=== PATIENT | female | born 2000 | race Caucasian/White ===

== ENCOUNTER → 2020-07-02 14:39 | Outpatient (CLI) | payer BC, SELFPAY ==
--- NOTE | 2020-07-02 14:49 | XR_ITS ---
PROCEDURE: XR CHEST AP CLINICAL HISTORY: NON SPECIFIC REACTION TO TB SKIN TEST W/O ACTIVE TB COMPARISON: No exams were available for comparison FINDINGS: The cardiomediastinal silhouette and pulmonary vascularity are within normal limits. The lungs are clear without infiltrates, suspicious nodules, or pleural effusions. No acute bony abnormalities. IMPRESSION: No acute findings. Dictated b Sudhakar Claros MD 07/02/2020 15:44 Sudhakar Claros MD in [place] 07/02/2020 15:44
== END ==
PROVIDERS: PCP Family Medicine; Visit Provider Family Medicine
DX: R76.11 Nonspecific reaction to tuberculin skin test without active tuberculosis (principal)
CPT/HCPCS: 71045

== ENCOUNTER 2020-10-09 14:12 | Emergency (ER) | payer BC, SELFPAY ==
[2020-10-09 14:33] VITALS: BP 141/98; PULSE 94; RESP 18; TEMP 36.6; O2SAT 98; BMI 22.6
--- NOTE | 2020-10-09 14:56 | HMH.EDUTC ---
[facility] [place] Clinical Impression: Exposure to COVID-19 virus Disposition: Home, Self-Care Condition on Discharge: Good Instructions: Preventing the Spread of Coronavirus Discharge Instructions Additional Instructions: Drink plenty of fluids. Take tylenol for pain or fever. Follow up with your regular doctor. GO TO THE ER FOR ANY WORSENING SYMPTOMS Referrals: Gabino You MD [Primary Care Provider] - Time of Disposition: 15:00 Medical Decision Making - Medical Records Medical records reviewed: No: I reviewed the patient's medical records. - Cam Inquiry Pt receiving controlled substance: No Vital Signs: 10/09/20 14:33 10/09/20 15:14 Temperature 97.9 F 97.9 F Temperature Source Oral Oral Pulse Rate 94 H Pulse Rate [Radial] 94 H Respiratory Rate 18 18 Blood Pressure 141/98 H Blood Pressure [Right Arm] 141/98 H Blood Pressure Mean [Right Arm] 112 Blood Pressure Source Automatic Cuff Blood Pressure Source [Right Arm] Automatic Cuff Blood Pressure Position Sitting Blood Pressure Position [Right Arm] Sitting 02 Sat by Pulse Oximetry 98 Oxygen Delivery Method Room Air Room Air Orders (Tests/Meds): ORDERS Category Date Time Status Covid-19 Nasal PCR ([facility]) Routine Lab 10/09/20 14:27 Received [facility] [place] HPI - General Stated complaint: COVID EXPOSURE Time Seen by Provider: 10/09/20 14:57 Mode of Arrival: Ambulatory Source of Information: Patient Limitations: No Limitations Description of Symptoms (Recalled from Triage Doc. by RN): covid exposure HEENT Symptoms (Recalled from RN notes): No Resp Symptoms (Recalled from RN notes): No Skin Symptoms (Recalled from RN notes): No MS Symptoms (Recalled from RN notes): No Functional Status (Recalled from RN notes): wnl - History of Present Illness Provider Complaint: She states that she was exposed to covid by someone at her college. She denies any symptoms. - Related Data Previous Rx's Medication Instructions Recorded amoxicillin 500 mg tablet 500 mg PO BID #14 tab 02/14/20 prednisone 20 mg tablet 20 mg PO BID #10 tab 02/14/20 norgestimate 0.18 mg/0.215 mg/0.25 1 tab PO DAILY #84 tab 10/02/20 mg-ethinyl estradiol 25 mcg tablet Allergies Allergy/AdvReac Type Severity Reaction Status Date / Time No Known Allergies Allergy Verified 09/26/19 10:02 - Worker's Comp Is this a Worker's Comp case?: No [facility] History - Hepatitis A Screen Drug use history?: No High risk sexual behaviors?: No History of sexually transmitted infection?: No Currently employed?: No Childcare worker?: No Do you have indoor plumbing?: Yes Do you have electricity?: Yes Attestation statement:: This patient has been screened for Hepatitis A risk factors. I have reviewed the patient's past medical history: Yes Other Surgeries: Yes: No Previous Surgery - Social History Smoking Status: Never smoker Alcohol Intake: never Occupational Status: student Family Hx:: No significant family history ROS Obtained: Yes All systems reviewed & no additional complaints - Constitutional Constitutional: Reports system reviewed and no additional complaints, except as docu - Eyes Eyes: Reports system reviewed and no additional complaints, except as docu - ENT Ears, Nose, Mouth, and Throat: Reports system reviewed and no additional complaints, except as docu - Cardiovascular Cardiovascular: Reports system reviewed and no additional complaints, except as docu - Respiratory Respiratory: Yes system reviewed and no additional complaints, except as docu - Gastrointestinal Gastrointestingal: Reports: system reviewed and no additional complaints, except as docu Physical Exam - General General appearance: alert, in no apparent distress - Head Head exam: atraumatic, normocephalic, normal inspection - Eye Eye exam: Present: normal appearance, PERRL, EOMI - ENT ENT exam: Present: normal exam, normal oropharynx, mucous membranes mois
[2020-10-09 15:14] VITALS: BP 141/98; PULSE 94; RESP 18; TEMP 36.6; O2SAT 98
--- NOTE | 2020-10-09 19:46 | PC.NURSE ---
Patient notified of positive results.
== END 2020-10-09 15:15 | disposition home or self-care (01) ==
PROVIDERS: Emergency Provider Nurse Practitioner Family; PCP Family Medicine
DX: U07.1 COVID-19 (principal)
CPT/HCPCS: 99201; U0003

== ENCOUNTER → 2021-12-23 17:30 | Outpatient (CLI) | payer BC, SELFPAY | PROVIDERS: Visit Provider Physician Assistant | DX: R82.90 Unspecified abnormal findings in urine (principal); B95.8 Unspecified staphylococcus as the cause of diseases classified elsewhere | CPT/HCPCS: 87086; 87088; 87186 ==

== ENCOUNTER → 2022-05-11 14:24 | Outpatient (CLI) | payer BC, SELFPAY ==
[2022-05-14 10:32] LABS: QuantiFERON-TB Gold Plus Negative (Negative)
== END ==
PROVIDERS: PCP Physician Assistant; Visit Provider Physician Assistant
DX: Z11.1 Encounter for screening for respiratory tuberculosis (principal)
CPT/HCPCS: 36415; 86480

== ENCOUNTER → 2022-09-14 14:51 | Outpatient (CLI) | payer BC, SELFPAY ==
[2022-09-14 18:41] LABS: Free Thyroxine Index 3.5 ug/dL (5.93-13.13); Triiodothryronine (T3) Uptake 27 % (23.5-40.5)
[2022-09-14 18:42] LABS: Free T4 (Free Thyroxine) 1.07 ng/dl (0.78-2.19)
[2022-09-14 18:55] LABS: Thyroid Stimulating Hormone 0.82 uIU/mL (0.465-4.68)
[2022-09-14 18:56] LABS: Thyroid Stimulating Hormone 0.83 uIU/mL (0.465-4.68)
[2022-09-16 08:16] LABS: Thyroid Peroxidase Antibodies <8 IU/mL (0-34); Triiodothyronine (T3) Free 3.6 pg/mL (2.0-4.4)
[2022-09-18 03:36] LABS: Thyroid Stimulating Immunoglob <0.10 IU/L (0.00-0.55)
== END ==
PROVIDERS: PCP Physician Assistant; Visit Provider Physician Assistant
DX: E04.1 Nontoxic single thyroid nodule (principal)
CPT/HCPCS: 84436; 84439; 84443; 84445; 84479; 84481; 86376

== ENCOUNTER → 2022-09-30 15:06 | Outpatient (CLI) | payer BC, SELFPAY ==
--- NOTE | 2022-09-30 15:06 | US_ITS ---
FINAL REPORT CLINICAL HISTORY: thyroid nodules FINDINGS: Sonographic images of the thyroid were obtained. The right lobe of the thyroid measures 5.1 x 1.2 x 1.8 cm. The left lobe of the thyroid measures 5.4 x 1.4 x 2.1 cm. The isthmus measures 0.18 cm. There is a mostly solid hypoechoic nodule in the right lobe of the thyroid measuring 12 x 7 x 7 mm consistent with TI-RADS category 4. There is a 2nd nodule in the right lobe of the thyroid which is cystic measuring 4 x 3 x 2 mm consistent with TI-RADS category 1. There is a 3rd nodule in the right lobe of the thyroid which is cystic with small calcifications measuring 4 x 4 x 3 mm consistent with TI-RADS category 2. There is a dominant left thyroid lobe nodule which is cystic, solid and hypoechoic measuring 28 x 11 x 18 mm consistent with TI-RADS category 3. IMPRESSION: Bilateral thyroid nodules as detailed above. Recommend ultrasound-guided biopsy on the dominant left thyroid lobe nodule. Reviewed, Interpreted and Dictated by Lukasz Menon III, MD Transcribed by Misty Aleman Authenticated and [facility]
== END ==
PROVIDERS: PCP Physician Assistant; Visit Provider Physician Assistant
DX: E04.1 Nontoxic single thyroid nodule (principal)
CPT/HCPCS: 76536

== ENCOUNTER → 2022-10-07 08:41 | Outpatient (CLI) | payer BC, SELFPAY ==
--- NOTE | 2022-10-07 08:43 | US_ITS ---
FINAL REPORT CLINICAL HISTORY: Left Thyroid Nodule-- fna-- antonio tsai FINDINGS: Ultrasound guided thyroid biopsy. HISTORY: Left thyroid mass. Attending radiologist: Dr. Byrne. Physician respiratory therapy assistant: Antonio Tsai PA-C PROCEDURE: After informed consent was obtained and a time-out was performed, the patient was prepped and draped in usual sterile fashion over the left neck. Utilizing local anesthesia and sterile technique with a 25-gauge needle, access to lesion was obtained. Three passes were made. The patient received no conscious sedation. The patient tolerated procedure well and left the department in good condition. IMPRESSION: Status post ultrasound guided biopsy of thyroid without immediate complication. Films reviewed , interpreted and dictated by Dr. Byrne. Transcribed by Antonio Tsai PA-C. Reviewed, Interpreted and Dictated by Jr Byrne MD Transcribed by CONRAD Faria Authenticated and [facility]
== END ==
PROVIDERS: PCP Physician Assistant; Visit Provider Physician Assistant
DX: E04.1 Nontoxic single thyroid nodule (principal)
CPT/HCPCS: 60100; 76942; 76536; 88173; 88305

== ENCOUNTER 2023-02-15 09:42 | Emergency (ER) | payer BC, SELFPAY ==
[2023-02-15 09:50] VITALS: BP 142/84; PULSE 77; RESP 14; TEMP 37.4; O2SAT 100; BMI 24.0
--- NOTE | 2023-02-15 10:03 | EXP.UTC ---
Discharge Plan Disposition Patient Disposition: Home, Self-Care Condition: Good Prescriptions Prescriptions: New azithromycin [Zithromax Z-Manfred] 250 mg tablet See Rx Instructions .ROUTE .COMPLEX 5 Days Qty: 6 0RF Rx Instructions: For 250 mg dose pack: take 500 mg today (day 1), then 250 mg for 4 days (days 2-5) No Action norgestimate-ethinyl estradiol 0.18/0.215/0.25 mg-35 mcg (28) tablet 1 tab PO DAILY Qty: 84 4RF Referrals Follow up/Referrals: Anna Hitchcock PA [Primary Care Provider] - See instructions Activity Restrictions/Add. Instructions Additional Instructions/Restrictions: *Monitor Temp, Over the counter Motrin or Tylenol as directed/as needed Tylenol every 4 hours and Motrin every 6 hours (as long as your family doctor has told you that you can take it) for fever or pain. and straight to ER if unable to lower temp less than 101.0 after medication given *Warm salt water gargles may help to soothe the throat *Throat Lozenges? *Warm fluids like tea with honey may help to soothe the throat? *Sleep elevated *Humidifier/Vaporizer Your throat swab was sent for culture. Those results are typically sent to your primary care. Be sure to follow up in 2-3 days with your family doctor/primary care physician if no improvement so they can review those result and treat if necessary. If you don?t have a primary care doctor, I recommend you get one but in the mean time, you will have to return to a walk in clinic Follow up IMMEDIATELY for new or worsening symptoms or no Noticeable improvement over the next 48-72 hours. 911 for difficulty breathing or swallowing Clinical Impressions Clinical Impression: Pharyngitis Qualifiers: Pharyngitis/tonsillitis etiology: unspecified etiology Qualified Code(s): J02.9 - Acute pharyngitis, unspecified Instructions Patient Instructions: Sore Throat Discharge ED Provider: Marce Elizalde [facility] General Stated complaint: Sore throat Mode of Arrival: Ambulatory Source of Information: Patient Limitations: No Limitations Time Seen by Provider: 02/15/23 10:03 Description of Symptoms (Recalled from Triage Doc. by RN): PATIENT C/O SORE THROAT SINCE YESTERDAY HEENT Symptoms (Recalled from RN notes): Yes Resp Symptoms (Recalled from RN notes): No Skin Symptoms (Recalled from RN notes): No MS Symptoms (Recalled from RN notes): No Functional Status (Recalled from RN notes): WNL History of Present Illness Provider Complaint: Patient states that she has been having sore throat for the last couple of days that has continued to get worse States that today her throat was hurting worse so she came in to get it checked Related Data Previous Rx's Medication Instructions Recorded norgestimate-ethinyl estradiol 1 tab PO DAILY #84 tabs 04/11/22 0.18 mg/0.215mg/0.25mg-35 mcg(28)tablet azithromycin 250 mg tablet See Rx Instructions PO .COMPLEX 5 02/15/23 (Zithromax Z-Manfred) days #6 tabs Allergies Allergy/AdvReac Type Severity Reaction Status Date / Time No Known Allergies Allergy Verified 09/14/22 14:28 Worker's Comp Is this a Worker's Comp case?: No PFSH [facility] Disclaimer: The information contained in this section may have been updated after the patient was seen, as this information can be updated by other users. Social History Smoking Status: Never smoker alcohol intake: never current occupational status: student Travel in the last 8 weeks: None ROS Obtained: Yes All systems reviewed & no additional complaints except as documented and Yes Systems reviewed as appropriate & no additional complaints except as documented Constitutional Constitutional: Reports system reviewed and no additional complaints, except as documented and Reports as per HPI ENT Ears, Nose, Mouth, and Throat: Reports system reviewed and no additional complaints, except as documented, Reports as per HPI and Rep
[2023-02-15 10:11] LABS: UTC Strep Screen (Rapid) Negative (Negative)
[2023-02-15 10:22] VITALS: BP 142/84; PULSE 77; RESP 14; TEMP 37.4; O2SAT 100
== END 2023-02-15 10:25 | disposition home or self-care (01) ==
PROVIDERS: Emergency Provider Nurse Practitioner; PCP Physician Assistant
DX: J02.9 Acute pharyngitis, unspecified (principal)
CPT/HCPCS: 87880; 99212; 99214; G0463

== ENCOUNTER → 2023-05-01 19:30 | Outpatient (CLI) | payer BC, SELFPAY | PROVIDERS: PCP Student in an Organized Health Care Education/Training Program; Visit Provider Student in an Organized Health Care Education/Training Program | DX: J02.9 Acute pharyngitis, unspecified (principal) ==

== ENCOUNTER → 2023-08-02 11:03 | Outpatient (CLI) | payer BC, SELFPAY ==
[2023-08-02 11:12] LABS: Microscopic, Urine URINE MICROSCOPIC (MICROSCOPIC)
[2023-08-02 11:57] LABS: Appearance,Urine CLEAR (Clear); Bilirubin,Urine Negative (Negative); Blood, Urine 2+ (Negative); Color,Urine YELLOW (Yellow); Glucose,Urine (UA) Negative (Negative); Ketones,Urine Negative (Negative); Leukocyte Esterase,Urine TRACE (Negative); Nitrate,Urine Negative (Negative); Protein,Urine Negative (Negative); Specific Gravity, Urine <= 1.005 (1.005-1.030); Urobilinogen,Urine 0.2 EU/dl (0.2)
[2023-08-02 12:11] LABS: Squamous Epithelial Cell,Urine Occasional #/hpf (0-5); WBC,Urine Occasional #/hpf (0-3)
== END ==
PROVIDERS: PCP Physician Assistant; Visit Provider Physician Assistant
DX: R30.0 Dysuria (principal)
CPT/HCPCS: 81001; 87086; 87088; 87186

== ENCOUNTER → 2023-09-29 11:33 | Outpatient (CLI) | payer BC, SELFPAY ==
[2023-09-29 11:36] LABS: Microscopic, Urine URINE MICROSCOPIC (MICROSCOPIC)
[2023-09-29 12:25] LABS: Appearance,Urine SL CLOUDY (Clear); Bilirubin,Urine Negative (Negative); Blood, Urine 3+ (Negative); Color,Urine YELLOW (Yellow); Glucose,Urine (UA) Negative (Negative); Ketones,Urine Negative (Negative); Leukocyte Esterase,Urine 1+ (Negative); Nitrate,Urine Negative (Negative); Protein,Urine TRACE (Negative); Specific Gravity, Urine 1.025 (1.005-1.030); Urobilinogen,Urine 0.2 EU/dl (0.2)
[2023-09-29 12:44] LABS: Bacteria,Urine 2+ /lpf
== END ==
PROVIDERS: PCP Physician Assistant; Visit Provider Physician Assistant
DX: R39.9 Unspecified symptoms and signs involving the genitourinary system (principal); N39.0 Urinary tract infection, site not specified; B96.29 Other Escherichia coli [E. coli] as the cause of diseases classified elsewhere; B96.1 Klebsiella pneumoniae [K. pneumoniae] as the cause of diseases classified elsewhere; B96.4 Proteus (mirabilis) (morganii) as the cause of diseases classified elsewhere
CPT/HCPCS: 81001; 87086

== ENCOUNTER 2024-02-21 08:08 | Emergency (ER) | payer BC, SELFPAY ==
[2024-02-21 08:20] VITALS: BP 115/58; PULSE 106; RESP 18; TEMP 37.1; O2SAT 99; BMI 24.2
--- NOTE | 2024-02-21 08:26 | ED_ITS ---
Discharge Plan Disposition Patient Disposition: Home, Self-Care Condition: Good Prescriptions Prescriptions: New azithromycin [Zithromax Z-Manfred] 250 mg tablet See Rx Instructions .ROUTE .COMPLEX 5 Days Qty: 6 0RF Rx Instructions: For 250 mg dose pack: take 500 mg today (day 1), then 250 mg for 4 days (days 2-5) methylprednisolone [Medrol (Manfred)] 4 mg tablets,dose pack See Rx Instructions .Route .COMPLEX 6 Days Qty: 21 0RF Rx Instructions: taper pack; No Action norgestimate-ethinyl estradiol [Tri-Sprintec (28)] 0.18/0.215/0.25 mg-35 mcg (28) tablet 1 tab PO DAILY Qty: 84 3RF Referrals Follow up/Referrals: Anna Hitchcock PA [Primary Care Provider] - See instructions Activity Restrictions/Add. Instructions Additional Instructions/Restrictions: *Monitor Temp, Over the counter Motrin or Tylenol as directed/as needed Tylenol every 4 hours and Motrin every 6 hours (as long as your family doctor has told you that you can take it) for fever or pain. and straight to ER if unable to lower temp less than 101.0 after medication given *Warm salt water gargles may help to soothe the throat *Throat Lozenges? *Warm fluids like tea with honey may help to soothe the throat? *Sleep elevated *Humidifier/Vaporizer Start oral steriods tomorrow Start oral antibiotics today Your throat swab was sent for culture. Those results are typically sent to your primary care. Be sure to follow up in 2-3 days with your family doctor/primary care physician if no improvement so they can review those result and treat if necessary. If you don?t have a primary care doctor, I recommend you get one but in the mean time, you will have to return to a walk in clinic Follow up IMMEDIATELY for new or worsening symptoms or no Noticeable improvement over the next 48-72 hours. 911 for difficulty breathing or s wallowing Clinical Impressions Clinical Impression: Sinusitis Qualifiers: Sinusitis location: unspecified location Chronicity: unspecified Qualified Code(s): J32.9 - Chronic sinusitis, unspecified Instructions Patient Instructions: Sinusitis, DI for Sinusitis Discharge ED Provider: Marce Elizalde [facility] General Stated complaint: sore throat, cough, congestion, Mode of Arrival: Ambulatory Source of Information: Patient Limitations: No Limitations Time Seen by Provider: 02/21/24 08:26 Description of Symptoms (Recalled from Triage Doc. by RN): Pt's symtptoms are cough, sore throat, congestion, and sinus pressure. HEENT Symptoms (Recalled from RN notes): Yes Resp Symptoms (Recalled from RN notes): No Skin Symptoms (Recalled from RN notes): No MS Symptoms (Recalled from RN notes): No Functional Status (Recalled from RN notes): n/a History of Present Illness Provider Complaint: Patient states that she has been having sinus pain and pressure, sore throat, cough and congestion States that today it was still bothering her so she came in to get checked Related Data Previous Rx's Medication Instructions Recorded norgestimate-ethinyl estradiol 1 tab PO DAILY #84 tabs 07/24/23 0.18 mg/0.215mg/0.25mg-35 mcg(28)tablet (Tri-Sprintec (28)) azithromycin 250 mg tablet See Rx Instructions PO .COMPLEX 5 02/21/24 (Zithromax Z-Manfred) days #6 tabs methylprednisolone 4 mg tablets in See Rx Instructions .Route 02/21/24 a dose pack (Medrol (Manfred)) .COMPLEX 6 days #21 tabs Allergies Allergy/AdvReac Type Severity Reaction Status Date / Time No Known Allergies Allergy Verified 02/21/24 08:25 Worker's Comp Is this a Worker's Comp case?: No [facility] Disclaimer: The information contained in this section may have been updated after the patient was seen, as this information can be updated by other users. Social History Smoking Status: Never smoker alcohol intake: never current occupational status: student Travel in the last 8 weeks: None ROS Obtained: Yes All systems reviewed & no additional complaints except as documented and Yes Systems reviewed as appropriate & no additional complaints except as documented Constitutional Constitutional: Reports system reviewed and no additional complaints, except as documented and Reports as per HPI ENT Ears, Nose, Mouth, and Throat: Reports system reviewed and no additional complaints, except as documented, Reports as per HPI, Reports nasal congestion and Reports sore throat Cardiovascular Cardiovascular: Reports system reviewed and no additional complaints, except as documented and Reports as per HPI Respiratory Respiratory: Reports system reviewed and no additional complaints, except as documented, Reports as per HPI and Reports cough Gastrointestinal Gastrointestingal: Reports system reviewed and no additional complaints, except as documented and as per HPI Physical Exam General General appearance: alert and in no apparent distress ENT ENT exam: Present mucous membranes moist Expanded ENT Exam Nose exam: Present sinus tenderness Throat exam: Present tonsillar erythema Respiratory Respiratory exam: Present normal lung sounds bilaterally; Absent respiratory distress or wheezes Cardiovascular Cardiovascular exam: Present regular rate, normal rhythm and normal heart sounds Neurological Exam Neurological exam: Present alert, oriented X3 and normal gait Medical Decision Making Cam Inquiry Pt receiving controlled substance: No Cam was queried for this patient: No Vital Signs: 02/21/24 08:20 Temperature 98.7 F Temperature Source Oral Pulse Rate [Right Radial] 106 H Respiratory Rate 18 Blood Pressure [Right Arm] 115/58 L Blood Pressure Mean [Right Arm] 77 Blood Pressure Source [Right Arm] Automatic Cuff Blood Pressure Position [Right Arm] Sitting 02 Sat by Pulse Oximetry 99 Oxygen Delivery Method Room Air Lab Data Lab results reviewed: Yes I reviewed the patient's lab results. Medical Decision Narrative: Patient denies
[2024-02-21 08:34] LABS: UTC Strep Screen (Rapid) Negative (Negative)
[2024-02-21] MEDS: METHYLPREDNISOLONE SOD SUCC 125MG VIAL 125 MG IM (08:43)
[2024-02-21 08:52] VITALS: BP 115/58; PULSE 106; RESP 18; TEMP 37.1; O2SAT 99
== END 2024-02-21 08:52 | disposition home or self-care (01) ==
PROVIDERS: Emergency Provider Nurse Practitioner; PCP Physician Assistant
DX: J01.90 Acute sinusitis, unspecified (principal); R05.9 Cough, unspecified; R07.0 Pain in throat; R09.81 Nasal congestion
CPT/HCPCS: 87880; 96372; 99212; 99214; G0463

== ENCOUNTER 2024-06-04 11:08 | Emergency (ER) | payer BC, SELFPAY ==
[2024-06-04 11:22] VITALS: BP 129/91; PULSE 70; RESP 18; TEMP 36.6; O2SAT 100; BMI 25.2
--- NOTE | 2024-06-04 11:22 | ED_ITS ---
Discharge Plan Disposition Patient Disposition: Home, Self-Care Condition: Good Prescriptions Prescriptions: New azithromycin [Zithromax] 250 mg tablet 250 mg PO UD DOSE PK Qty: 6 0RF Rx Instructions: Take two (2) tablets today, then one (1) tablet days #2 thru #5 methylprednisolone 4 mg Tablets,Dose Pack 4 mg PO DIRECTED 6 Days Qty: 21 0RF Rx Instructions: Take 1 pack as directed for 6 days [id number] [Bromfed DM] 2-30-10 mg/5 mL Syrup 5 ml PO Q6H PRN (Reason: Cough) Qty: 240 0RF Discontinued cefdinir 300 mg capsule 300 mg PO Q12H 10 Days Qty: 20 0RF prednisone 20 mg tablet 20 mg PO BID Qty: 10 0RF Rx Instructions: administer with food or milk azithromycin [Zithromax Z-Manfred] 250 mg tablet See Rx Instructions .ROUTE .COMPLEX 5 Days Qty: 6 0RF Rx Instructions: For 250 mg dose pack: take 500 mg today (day 1), then 250 mg for 4 days (days 2-5) methylprednisolone [Medrol (Manfred)] 4 mg tablets,dose pack See Rx Instructions .Route .COMPLEX 6 Days Qty: 21 0RF Rx Instructions: taper pack; No Action norgestimate-ethinyl estradiol [Tri-Sprintec (28)] 0.18/0.215/0.25 mg-35 mcg (28) tablet 1 tab PO DAILY Qty: 84 3RF Referrals Follow up/Referrals: Anna Hitchcock PA [Primary Care Provider] - See instructions Activity Restrictions/Add. Instructions Additional Instructions/Restrictions: Drink plenty of fluids. Take tylenol or ibuprofen for pain or fever. Take the medications as directed. Follow up with your regular doctor. GO TO THE ER FOR ANY WORSENING SYMPTOMS Don't start the oral steroids (medrol dose pack) until tomorrow since you had the shot here Clinical Impressions Clinical Impression: Pharyngitis Qualifiers: Pharyngitis/tonsillitis etiology: unspecified etiology Qualified Code(s): J02.9 - Acute pharyngitis, unspecified Instructions Patient Instructions: Sore Throat, DI for Pharyngitis/Tonsillopharyngitis -- Adult, Ceftriaxone Injection, Dexamethasone Injection Discharge ED Provider: Rene Serrano [facility] [place] HPI General Stated complaint: onset of sore throat Time Seen by Provider: 06/04/24 11:22 History of Present Illness Provider Complaint: She states that for the past 2 days she has had worsening sore throat and sinus congestion. Related Data Previous Rx's Medication Instructions Recorded norgestimate-ethinyl estradiol 1 tab PO DAILY #84 tabs 07/24/23 0.18 mg/0.215mg/0.25mg-35 mcg(28)tablet (Tri-Sprintec (28)) azithromycin 250 mg tablet 250 mg PO UD DOSE PK #6 tabs 06/04/24 (Zithromax) [id number] 5 ml PO Q6H PRN Cough #240 mL 06/04/24 2 mg-30 mg-10 mg/5 mL oral syrup (Bromfed DM) methylprednisolone 4 mg tablets in 4 mg PO DIRECTED 6 days #21 tabs 06/04/24 a dose pack Allergies Allergy/AdvReac Type Severity Reaction Status Date / Time No Known Allergies Allergy Verified 06/04/24 11:25 [facility] Disclaimer: The information contained in this section may have been updated after the patient was seen, as this information can be updated by other users. Social History Smoking Status: Never smoker alcohol intake: never current occupational status: student Travel in the last 8 weeks: None ROS Obtained: Yes All systems reviewed & no additional complaints except as documented Constitutional Constitutional: Reports as per HPI, Reports chills and Denies fever(s) Eyes Eyes: Denies eye discharge ENT Ears, Nose, Mouth, and Throat: Reports as per HPI Cardiovascular Cardiovascular: Denies chest pain Respiratory Respiratory: Denies chest congestion and Reports cough Gastrointestinal Gastrointestingal: Reports nausea; Denies abdominal pain, constipation, cramping, diarrhea or vomiting Musculoskeletal Musculoskeletal: Denies arthralgias Integumentary/Breasts Skin/Breast: Denies rash Neurologic Neurologic: Denies paresthesias Physical Exam General General appearance: alert and in no apparent distress Head Head exam: atraumatic, normocephalic and normal inspection Eye Eye exam: Present normal appearance, PERRL and EOMI ENT ENT exam: Present mucous membranes moist and normal external ear exam Expanded ENT Exam TM/Canal exam: Bilateral TM: erythema and bulging Nose exam: Absent sinus tenderness Mouth exam: Present normal external inspection; Absent drooling Teeth exam: Present normal inspection Throat exam: Present tonsillar erythema, tonsillomegaly and tonsillar exudate Neck Neck exam: Present normal inspection, full ROM and trachea midline; Absent tenderness, meningismus or lymphadenopathy Chest Chest inspection: Present normal inspection and symmetric chest wall rise; Absent tenderness Respiratory Respiratory exam: Present normal lung sounds bilaterally; Absent respiratory distress, wheezes, stridor or accessory muscle use Cardiovascular Cardiovascular exam: Present regular rate and normal rhythm; Absent systolic murmur or diastolic murmur Abdominal Exam Abdominal exam: Present soft and normal bowel sounds; Absent distention, tenderness, guarding, rebound or rigidity Extremities Exam Extremities exam: Present normal inspection and normal capillary refill; Absent calf tenderness Back Exam Back exam: Present normal inspection and full ROM; Absent tenderness, CVA tenderness (R) or CVA tenderness (L) Neurological Exam Neurological exam: Present alert, oriented X3 and CN II-XII intact Psychiatric Psychiatric exam: Present normal affect and normal mood Skin Skin exam: Present warm, dry, intact and normal color Medical Decision Making Medical Records Medical records reviewed: No I reviewed the patient's medical records. Cam Inquiry Pt receiving controlled substance: No Lab Data Lab results reviewed: Yes I reviewed the patient's lab results.
[2024-06-04 11:28] LABS: UTC Strep Screen (Rapid) Negative (Negative)
[2024-06-04] MEDS: DEXAMETHASONE 4MG/ML 1ML VIAL 8 MG IM (11:39)
[2024-06-04] MEDS: cefTRIAXone 1GM VIAL 1 GM IM (11:39)
[2024-06-04 12:05] VITALS: BP 129/91; PULSE 70; RESP 18; TEMP 36.6; O2SAT 100
== END 2024-06-04 12:06 | disposition home or self-care (01) ==
PROVIDERS: Emergency Provider Nurse Practitioner Family; PCP Physician Assistant
DX: J02.9 Acute pharyngitis, unspecified (principal)
CPT/HCPCS: 87880; 96372; 99212; 99214; G0463; J0696; J1100

== ENCOUNTER 2025-06-26 08:44 | Outpatient (CLI) | payer BC, SELFPAY ==
--- OUTSIDE RECORDS SUMMARY | 2025-06-24 17:15 | XMS_ITS | Encounter Summary ---
Author Organization [facility] Address [address] [place], [place] [id number] Phone [email or web address] Care Team Providers Care Civil Engineering Project Designer Name Role Phone Anna Hitchcock Primary Care Provider Unavailabl e Reason for Visit * Reason Comments Establish Care / New Member Pt is here t o establish care Encounter Details Date Type Department Care Team (Late st Contact Info) Description 06/24/2025 5:15 PM EDT Office Visit [facility] [address] [place] [address] Ronald Duncan MD [address] [place] [address] Anxiety (Primary Dx) Social History Tobacco Use Types Packs/Day Years Used Date Smoking Tobacco: Never Smokeless Tobacco: Never Tobacco Cessation:Counseling Given: No Alcohol Use Standard Drinks/Week Comments Defer 0 (1 standard drink = 0.6 oz pur e alcohol) Alcohol Use Answer Date Recorded Alcohol Use Status Defer 06/24/2025 Depression Answer Date Recorded PHQ Total Score 0 06/24/2025 Comments Unknown Sex and Gender Information Value Date Recorded Sex Assigned at Female 06/18/2025 9:19 AM CDT Legal Sex Female 4:36 PM CDT Gender Identity Female 06/18/2025 9:19 AM CDT Sexual Orientation Not on file documented as of this encounter Last Filed Vital Signs Vital Sign Reading Time Taken Comments Blood Pressure 118/72 06/24/2025 5:14 PM EDT Pulse 87 06/24/2025 5:14 PM EDT Temperature 37.3 C (99.1 F) 06/24/2025 5:14 PM EDT Respiratory Rate - - Oxygen Saturation 99% 06/24/2025 5:14 PM EDT Inhaled Oxygen Concentration - - Weight 69.5 kg (153 lb 3.2 oz) 06/24/2025 5:14 P M EDT Height - - Body Mass Index - - documented in this encounter Progress Notes * Ronald Duncan MD - 06/24/2025 5:15 PM EDT Allergies Chart Review Health Maintenance History Immunizations Screenings Search Synopsis This Visit Vital Signs Assessment & Plan Anxiety Orders: CMP12+LP+6AC (171280) - [facility]; Future Hgb A1C Hemoglobin Glycosylated (62729); Future TSH Thyroid Stimulating Hormone (06775); Future T4, Free (01978); Future TPO Thyroid Peroxidase and Thyroglobulin Antibodies (79474,92708); Future CBC Complete blood count with diff (60298); Future Magnesium Serum (85983); Future JOSEPH Screen,IFA, with Reflex to Titer and Pattern (91800); Future Rheumatoid factor (69814); Future CRP C-reactive protein (75989); Future escitalopram (LEXAPRO) 10 MG tablet; Take 1 tablet (10 mg total) by mouth 1 (one) time each day. Brodie start lexapro 10mg once a day. Take in am with food and start with 1/2 tablet for first four days. Will touch base in about 6 weeks to see how she is doing. Discussed remaining on the medication for at least a year before considering taper (provided things are going well) -- has been shown to dr amatically reduce the risk of relapse. Keep up exercise and consider HIIT training which may help with anxiety. Discussed clean diet which has shown to benefit anxiety. All questions answered. She was instructed to contact us with any issues prior to f/u. Follow-up: No follow up orders placed. Subjective Neil Perez is a 25 y.o. Reason(s) for visit on 06/24/2025: Establish Care / New Member Comments (if any): Pt is here to establish care HPI: Neil Perez is a 25 y.o. female who presents for labs and discussion of anxiety. She works at [employer] as an [employer]. Went to school in [place] for her degree. Has been working 2 years now and enjoys it. She is finding herself very anxious at all times -- unable to leave things at work, worrying unreasonably about people in the house, leaving appliances on, etc. She has never had thisissue before and has never been treated for any psychiatric issues. Her sister has anxiety and is on medication. She is active -- spends a lot of time in the gym. No recent financial, medical, relationship issues. No illnesses. No trauma or accidents. NKDA. No surgeries. Symptoms have been going onfor last 4 or more months and have become intrusive and affecting all aspects of her life. She has cut down significantly on caffeine. Her sleep and appetite have been fine. She did have some thyroidconcerns a few years back with an apparent temporary goiter, but testing, etc was all OK and thingsresolved. General Pertinent negatives include no abdominal pain, arthralgias, chest pain, chills, congestion, coughing, fatigue, fever, headaches, myalgias, nausea or weakness. Review of Systems Constitutional: Negative for chills, fatigue, fever and unexpected weight change. HENT: Negative for congestion, rhinorrhea and trouble swallowing. Respiratory: Negative for cough, shortness of breath and wheezing. Cardiovascular: Negative for chest pain, palpitations and leg swelling. Gastrointestinal: Negative for abdominal pain, blood in stool, heartburn and nausea. Musculoskeletal: Negative for arthralgias and myalgias. Skin: Negative for bleeding and bruising. Neurological: Negative for dizziness, tremors, weakness and headaches. Endo: Negative for polydipsia, polyphagia and polyuria. Psychiatric/Behavioral: Positive for agitation. Negative for behavioral problems, confusion, decreased concentration, dysphoric mood, hallucinations, self-injury, sleep disturbance and suicidal ideas. The patient is nervous/anxious. The patient does not have insomnia and is not hyperactive. Hematologic: Negative for adenopathy and bruises/bleeds easily. Genitourinary: Negative for difficulty urinating and frequency. The following portions of the patient's chart were reviewed by me during this encounter and updatedas appropriate: Objective Visit Vitals BP 118/72 Pulse 87 Temp 99.1 ??F Wt 153 lb 3.2 oz SpO2 99% Physical Exam Vitals and nursing note reviewed. Constitutional: Appearance: Normal appearance. HENT: Head: Normocephalic and atraumatic. Eyes: General: No scleral icterus. Extraocular Movements: Extraocular movements intact. Conjunctiva/sclera: Conjunctivae normal. Pupils: Pupils are equal, round, and reactive to light. Cardiovascular: Rate and Rhythm: Normal rate and regular rhythm. Heart sounds: Normal heart sounds. Pulmonary: Effort: Pulmonary effort is normal. Breath sounds: Normal breath sounds. Abdominal: General: Abdomen is flat. Musculoskeletal: General: Normal range of motion. Cervical back: Normal range of motion and neck supple. Skin: General: Skin is warm. Neurological: General: No focal deficit present. Mental Status: She is alert and oriented to person, place, and time. Mental status is at baseline. Psychiatric: Mood and Affect: Mood normal. Behavior: Behavior normal. Thought Content: Thought content normal. Judgment: Judgment normal. Ronald Duncan MD 06/24/2025 Answers submitted by the patient for this visit: Other (Submitted on 06/23/2025) Chief Complaint: REASON FOR VISIT - OTHER Please describe your symptoms.: blood work / anxiety Have you had these symptoms before?: No Questionnaire about: REASON FOR VISIT - OTHER (Submitted on 06/23/2025) Chief Complaint: REASON FOR VISIT - OTHER documented in this encounter Plan of Treatment Upcoming Encounters Date Type Department Care Team (Late st Contact Info) Description 07/03/2025 5:30 PM EDT Lab [facility] [address] [place] [address] Scheduled Orders Name Type Priority Associated Diagnoses Orde r Schedule CMP12+LP+6AC (860754) - [facility] Lab Routine Anxiety Expected: 07/25/2025, Expires: 12/25/2025 Hgb A1C Hemoglobin Glycosylated (66813) Lab Routine Anxiety Expected: 07/25/2025, Expires: 12/25/2025 TSH Thyroid Stimulating Hormone (57633) Lab Routine Anxiety Expected: 07/25/2025, Expires: 12/25/2025 T4, Free (37882) Lab Routine Anxiety Expected: 07/25/2025, Expires: 12/25/2025 TPO Thyroid Peroxidase and Thyroglobulin Antibodies (59139,76061) Lab Routine Anxiety Expected: 07/25/2025, Expires: 12/25/2025 CBC Complete blood count with diff (63722) Lab Routine Anxiety Expected: 07/25/2025, Expires: 12/25/2025 Magnesium Serum (24455) Lab Routine Anxiety Expected: 07/25/2025, Expires: 12/25/2025 JOSEPH Screen,IFA, with Reflex to Titer and Pattern (44729) Lab Routine Anxiety Expected: 07/25/2025, Expires: 12/25/2025 Rheumatoid factor (96772) Lab Routine Anxiety Expected: 07/25/2025, Expires: 12/25/2025 CRP C-reactive protein (90893) Lab Routine Anxiety Expected: 07/25/2025, Expires: 12/25/2025 documented as of this encounter Visit Diagnoses Diagnosis Anxiety- Primary Anxiety state, unspecified documented in this encounter Care Teams Civil Engineering Project Designer Relationship Specialty Start Date End Date Anna Hitchcock [address] [place] [address] PCP - General Family Medicine 06/24/25 documented as of this encounter
[2025-06-26 14:47] LABS: Influenza A, PCR Not Detected (NotDetected); Influenza B, PCR Not Detected (NotDetected)
[2025-06-26 16:23] LABS: Coronavirus 19, PCR Detected (NotDetected)
--- OUTSIDE RECORDS SUMMARY | 2025-06-27 13:44 | XMS_ITS | Clinical Summary ---
Author Organization [facility] Address [address] [place] [address] Phone [email or web address] Care Team Providers Care Well Service Derrick Worker Name Role Phone Anna Hitchcock Primary Care Provider Unavailabl e Allergies No known active allergies Medications escitalopram (LEXAPRO) 10 MG tabletIndicatio ns:Anxiety Take 1 tablet (10 mg total) by mouth 1 (one) time each day. 90 tablet 5 09/22/20 25 Active Tri-Sprintec 0.18/0.215/0.25 MG-35 MCG per tablet Take 1 tablet by mouth 1 (one) time each day. 5 06/24/20 25 Discontinued Active Problems No known active problems Encounters Date Type Department Care Team Description 06/24/2025 5:15 PM EDT Office Visit [facility] [address] [facility] [address] [address] [place] [address] Ronald Duncan MD Anxiety (Primary Dx) from Last 3 Months Social History Tobacco Use Types Packs/Day Years [...] AM CDT Sexual Orientation Not on file Last Filed Vital Signs Vital Sign Reading [...] - - Body Mass Index - - Plan of Treatment Upcoming Encounters Date Type Department Care Team (Late st Contact Info) Description 07/03/2025 5:30 PM EDT Lab [facility] [address] [place] [address] Health Maintenance Due Date Last Done Comments Dental Cleaning/Exam 2000 HIV Screening 2000 Hepatitis C Screening 2000 Hepatitis B Immunization (3 of 3 - 3-dose series) 05/29/2001 04/03/2001, 2000 HPV Immunization (1 - 3-dose series) 2015 Cervical Cancer Screening 2016 Annual Preventive Exam 2018 Hep B Infection Screening - Triple Screen 2018 Tetanus Diphtheria and Pertussis Immunization (4 - Tdap) 2019 04/03/2001, 01/17/2001, 2000, Additional history exists Covid-19 Immunization ( season) 2024 05/17/2022, 08/03/2021, 07/06/2021 Influenza Immunization (#1) 07/28/202508/28, 09/18/2023, 12/12/2022, Additional history exists HIB Immunization Completed 04/03/2001, , 2000 Polio Immunization Completed 04/03/2001, 0 01/17/2001, 2000, Additional history exists Varicella Immunization Aged Out 04/03/2001 No lo nger eligible based on patient's age to complete this topic Pneumococcal: Ped (0 to 5 Yrs) and At-Risk Member (6 to 64 Yrs) Aged Out 09/25/2001, 06/12/2001 No longer eligibl e based on patient's age to complete this topic Hepatitis A Immunization Aged Out No longer eligible based on patient's age to complete this topic Men B Immunization Aged Out No longer eligible based on patient's age to complete this topic Meningococcal Immunization Aged Out N o longer eligible based on patient's age to complete this topic Insurance ZAIN NO COPAY NB Care Teams Well Service Derrick Worker Relationship Specialty Start Date End Date Anna Hitchcock [address] [place] [address] PCP - General Family Medicine 06/24/25
== END 2025-06-26 23:59 | disposition home or self-care (01) ==
LOC: LAB.DROPOF 06-27 13:42
PROVIDERS: PCP Student in an Organized Health Care Education/Training Program; Visit Provider Student in an Organized Health Care Education/Training Program
DX: R05.1 Acute cough (principal)
CPT/HCPCS: 87631

== ENCOUNTER 2025-07-25 15:03 | Outpatient (CLI) | payer BC, SELFPAY ==
--- OUTSIDE RECORDS SUMMARY | 2025-06-24 17:15 | XMS_ITS | Encounter Summary ---
Author Organization [facility] Address [address] [place], [place] [id number] Phone [email or web address] Care Team Providers Care Rn Practitioner Name Role Phone Anna Hitchcock Primary Care Provider Unavailabl e Reason for Visit * Reason Comments Establish Care / New Member Pt is here t o establish care Encounter Details Date Type Department Care Team (Late st Contact Info) Description 06/24/2025 5:15 PM EDT Office Visit [facility] [address] [place] [address] Ronald Duncan MD [address] [place] [address] Anxiety (Primary Dx) Social History [...] Signs Assessment & Plan Anxiety Orders: CMP12+LP+6AC (114276) - [facility]; Future Hgb A1C Hemoglobin Glycosylated (40378); Future TSH Thyroid Stimulating Hormone (08621); Future T4, Free (21760); Future TPO Thyroid Peroxidase and Thyroglobulin Antibodies (87410,46458); Future CBC Complete blood count with diff (53280); Future Magnesium Serum (43596); Future JOSEPH Screen,IFA, with Reflex to Titer and Pattern (34623); Future Rheumatoid factor (75930); Future CRP C-reactive protein (55131); Future escitalopram (LEXAPRO) 10 MG tablet; Take [...] and discussion of anxiety. She works at [employer] as an [employer]. Went to school in [place] for her degree. Has been working 2 [...] documented in this encounter Plan of Treatment Not on file documented as of this encounter Results * CRP C-reactive protein (50890) (07/03/2025 5:17 PM EDT) CRP 2 0 - 10 mg/L 01 Blood (Blood, Venous) 07/03/2025 5:17 PM EDT 07/04/2025 1:00 AM EDT Comment:Blood, Venou Narrative [facility] - 07/05/2025 10:09 AM EDT Performed at: - [address] [id number] Pipe Organ Installer: Jc Shaver PhD, Phone: [phone] us Ronald Duncan MD LAB BLOOD ORDERABLES Final Resul t [facility] - [address] [place] [address] * Rheumatoid factor (07354) (07/03/2025 5:17 PM EDT) Rheumatoid Factor <10.0 <14.0 IU/mL 01 Blood (Blood, Venous) 07/03/2025 5:17 PM EDT 07/04/2025 1:00 AM EDT Comment:Blood, Venou Narrative [facility] - 07/05/2025 10:09 AM EDT Performed at: [address] [id number] Pipe Organ Installer: Jc Shaver PhD, Phone: [phone] us Ronald Duncan MD LAB BLOOD ORDERABLES Final Resul t Performing Organization Address [facility] de Phone Number [email or web address] [facility] [address] [place] [address] * JOSEPH Screen,IFA, with Reflex to Titer and Pattern?? (34643) (07/03/2025 5:17 PM EDT) Pathologist [facility] antinuclear Antibodies, IFA Negative 01 Comment: Negative <1:80 Borderline 1:80 Positive >1:80 ICAP nomenclature: AC-0 For more information about Hep-2 cell patterns use ANApatterns.org, the official website for the International Consensus on Antinuclear Antibody (JOSEPH) Patterns (ICAP). Blood (Blood, Venous) 07/03/2025 5:17 PM EDT 07/04/2025 1:00 AM EDT Comment:Blood, Venou Narrative [facility] - 07/08/2025 10:09 AM EDT Performed at: [facility] [address] [place] [id number] Pipe Organ Installer: Jc Shaver PhD, Phone: [phone] us Ronald Duncan MD LAB BLOOD ORDERABLES Final Resul t Performing Organization Address [facility] de Phone Number [facility] [address] [place] [address] * Magnesium Serum (71384) (07/03/2025 5:17 PM EDT) Pathologist [facility] Magnesium 2.1 1.6 - 2.3 mg/dL 01 Blood (Blood, Venous) 07/03/2025 5:17 PM EDT 07/04/2025 1:00 AM EDT Comment:Blood, Venou Narrative [facility] - 07/05/2025 9:09 AM EDT Performed at: - [facility] [address] [id number] Pipe Organ Installer: Jc Shaver PhD, Phone: [phone] us Ronald Duncan MD LAB BLOOD ORDERABLES Final Resul t [facility] - [address] [place] [address] * CBC Complete blood count with diff (40192) (07/03/2025 5:17 PM EDT) [facility] Auto WBC 5.8 3.4 - 10.8 x10E3/uL 01 RBC 4.64 3.77 - 5.28 x10E6/uL 01 Hemoglobin 13.3 11.1 - 15.9 g/dL 01 Hematocrit 41.5 34.0 - 46.6 % 01 MCV 89 79 - 97 fL 01 MCH 28.7 26.6 - 33.0 pg 01 MCHC 32.0 31.5 - 35.7 g/dL 01 RDW 11.7 11.7 - 15.4 % 01 Platelets 204 150 - 450 x10E3/uL 01 Neutrophils Relative 51 Not Estab. % 01 Lymphocytes Relative 40 Not Estab. % 01 Monocytes Relative 5 Not Estab. % 01 Eosinophils Relative 3 Not Estab. % 01 Basophils Relative 1 Not Estab. % 01 Neutrophils Absolute 3.0 1.4 - 7.0 x10E3/uL 01 Lymphocytes Absolute 2.4 0.7 - 3.1 x10E3/uL 01 Monocytes Absolute 0.3 0.1 - 0.9 x10E3/uL 01 Eosinophils Absolute 0.2 0.0 - 0.4 x10E3/uL 01 Basophils Absolute 0.0 0.0 - 0.2 x10E3/uL 01 Immature Granulocytes 0 Not Estab. % 01 Immature Grans Absolute 0.0 0.0 - 0.1 x10E3/uL 01 Blood (Blood, Venous) 07/03/2025 5:17 PM EDT 07/04/2025 1:00 AM EDT Comment:BloodMaddy Narrative [facility] - 07/05/2025 4:07 AM EDT Performed at: [address] [place] [id number] Pipe Organ Installer: Jc Shaver PhD, Phone: [phone] Ronald Ducnan MD LAB BLOOD ORDERABLES Final Resul t Performing Organization Address [facility] de Phone Number [facility] [address] [place] [address] * TPO Thyroid Peroxidase and Thyroglobulin Antibodies?? (64706,48846) (07/03/2025 5:17 PM EDT) Thyroid Peroxidase Ab 18 0 - 34 IU/mL 01 Antithyroglobulin Ab <1.0 0.0 - 0.9 IU/mL 01 Comment: Thyroglobulin Antibody measured by [employer] Methodology It should be noted that the presence of thyroglobulin antibodies may not be pathogenic nor diagnostic, especially at very low levels. The assay regional economic liaison has found that four percent of individuals without evidence of thyroid disease or autoimmunity will have positive TgAb levels up to 4 IU/mL. Blood (Blood, Venous) 07/03/2025 5:17 PM EDT 07/04/2025 1:00 AM EDT Comment:BloodMaddy Narrative [facility] - 07/07/2025 5:09 PM EDT Performed at: [address] [place] [id number] Pipe Organ Installer: Jc Shaver PhD, Phone: [phone] us Ronald Duncan MD LAB BLOOD ORDERABLES Final Resul t Performing Organization Address [facility] de Phone Number [facility] - [address] [place] [address] * T4, Free (50804) (07/03/2025 5:17 PM EDT) Free T4 1.44 0.82 - 1.77 ng/dL 01 Blood (Blood, Venous) 07/03/2025 5:17 PM EDT 07/04/2025 1:00 AM EDT Comment:Maddy Molina Narrative [facility] - 07/05/2025 7:07 AM EDT Performed at: [address] [place] [id number] Pipe Organ Installer: Jc Shaver PhD, Phone: [phone] Ronald Duncan MD LAB BLOOD ORDERABLES Final Resul t Performing Organization Address [facility] de Phone Number [facility] - [address] [place] [address] * (ABNORMAL) TSH Thyroid Stimulating Hormone?? (25548) (07/03/2025 5:17 PM EDT) [facility] TSH, High Sensitivity 0.386(L) 0.450 - 4.500 uIU/mL 01 Blood (Blood, Venous) 07/03/2025 5:17 PM EDT 07/04/2025 1:00 AM EDT Comment:BloodMaddy Narrative [facility] - 07/05/2025 6:07 AM EDT Performed at: [address] [place] [id number] Pipe Organ Installer: Jc Shaver PhD, Phone: [phone] us Ronald Duncan MD LAB BLOOD ORDERABLES Final Resul t Performing Organization Address [facility] de Phone Number [facility] - [address] [place] [address] * Hgb A1C Hemoglobin Glycosylated (85311) (07/03/2025 5:17 PM EDT) [facility] Hemoglobin A1C 4.9 4.8 - 5.6 % 01 Comment: Prediabetes: 5.7 - 6.4 Diabetes: >6.4 Glycemic control for adults with diabetes: <7.0 Blood (Blood, Venous) 07/03/2025 5:17 PM EDT 07/04/2025 1:00 AM EDT Comment:Blood, Venou Narrative [facility] - 07/05/2025 4:07 AM EDT Performed at: 01 - [facility] [address] [id number] Pipe Organ Installer: Jc Shaver PhD, Phone: [phone] Ronald Duncan MD LAB BLOOD ORDERABLES Final Resul t [facility] - [address] [place] [address] * (ABNORMAL) CMP12+LP+6AC (833559) - [facility] (07/03/2025 5:17 PM EDT) Glucose 102(H) 70 - 99 mg/dL 01 Uric Acid 3.2 2.6 - 6.2 mg/dL 01 Comment:Therapeutic target f or gout patients: <6.0 BUN 11 6 - 20 mg/dL 01 Creatinine 0.76 0.57 - 1.00 mg/dL 01 eGFR 111 >59 mL/min/1.7 3 01 BUN/Creatinine Ratio 14 9 - 23 01 Sodium 140 134 - 144 mmol/L 01 Potassium 3.9 3.5 - 5.2 mmol/L 01 Chloride 104 96 - 106 mmol/L 01 Calcium 9.3 8.7 - 10.2 mg/dL 01 Phosphorus 3.8 3.0 - 4.3 mg/dL 01 Total Protein 7.0 6.0 - 8.5 g/dL 01 Albumin 4.3 4.0 - 5.0 g/dL 01 Globulin, Total 2.7 1.5 - 4.5 g/dL 01 Total Bilirubin 0.3 0.0 - 1.2 mg/dL 01 Alkaline Phosphatase 43(L) 44 - 121 IU/L 01 LD 154 119 - 226 IU/L 01 AST 24 0 - 40 IU/L 01 ALT (SGPT) 28 0 - 32 IU/L 01 GGT 13 0 - 60 IU/L 01 Iron 31 27 - 159 ug/dL 01 Cholesterol 151 100 - 199 mg/dL 01 Triglycerides 105 0 - 149 mg/dL 01 HDL 43 >39 mg/dL 01 VLDL Cholesterol Luis M 19 5 - 40 mg/dL 01 LDL Calculated 89 0 - 99 mg/dL 01 Chol/HDL Ratio 3.5 0.0 - 4.4 ratio 01 Comment: T. Chol/HDL Ratio Men Women 1/2 Avg.Risk 3.4 3.3 Avg.Risk 5.0 4.4 2X Avg.Risk 9.6 7.1 3X Avg.Risk 23.4 11.0 Estimated CHD Risk 0.6 0.0 - 1.0 times avg. 01 Comment: The CHD Risk is based on the T. Chol/HDL ratio. Other factors affect CHD Risk such as hypertension, smoking, diabetes, severe obesity, and family history of premature CHD. Blood (Blood, Venous) 07/03/2025 5:17 PM EDT 07/04/2025 1:00 AM EDT Comment:Blood, Venou Narrative [facility] - 07/05/2025 9:09 AM EDT Performed at: 01 - [address] [id number] Pipe Organ Installer: Jc Shaver PhD, Phone: [phone] us Ronald Duncan MD LAB BLOOD ORDERABLES Final Resul t [facility] - [address] [place] [address] documented in this encounter Visit Diagnoses Diagnosis Anxiety- Primary Anxiety state, unspecified Anxiety Anxiety state, unspecified documented in this encounter Care Teams Rn Practitioner Relationship Specialty Start Date End Date Naldo [place] [address] [place] [address] PCP - General Family Medicine 06/24/25 documented as of this encounter
--- OUTSIDE RECORDS SUMMARY | 2025-07-03 17:30 | XMS_ITS | Encounter Summary ---
Author Organization [facility] Address [address] [place], [place] [id number] Phone [email or web address] Care Team Providers Care Grocery Sacker Name Role Phone Anna Hitchcock Primary Care Provider Unavailabl e Reason for Visit * Reason Comments Labs Only Lab draw per Dr. Donn perez Encounter Details Date Type Department Care Team (Late st Contact Info) Description 07/03/2025 5:30 PM EDT Lab [facility] [address] [facility] [address] [place] [address] Melisa Segura MA [address] [place] [address] Anxiety Social History Tobacco Use Types Packs/Day Years Used Date Smoking Tobacco: Never Smokeless Tobacco: Never Alcohol Use Standard Drinks/Week Comments Defer 0 [...] on file documented as of this encounter Progress Notes * Melisa Segura MA - 07/03/2025 5:30 PM EDT Neil Perez is a 25 y.o. female presents to the [facility] 07/03/2025 for Non-Fasting lab work ordered by Health Center provider . Labs drawn via right antecubital using butterfly 21 gauge needle on the first attempt without difficulty. Manual pressure applied to site upon completion of venipuncture with a small amount of bleeding, Coban applied over site. Member tolerated lab procedure well and was ambulatory out of the Health Center without difficulty:Yes. Lab specimen tubes collected: SST, 8 LAV, 2 Melisa Segura CMA documented in this encounter Plan of Treatment Not on file documented as of this encounter Procedures Procedure Name Priority Date/Time Associated Diagnosis Comments CMP12+LP+6AC - [facility] Routine 5:17 PM EDT Anxiety TPO THYROID PEROXIDASE AND THYROGLOBULIN ANTIBODIES Routine 07/03/2025 5:17 PM EDT Anxiety CBC WITH DIFFERENTIAL/PLATELET Routine 07/03/2025 5:17 PM EDT Anxiety RHEUMATOID FACTOR Routine 07/03/2025 5:1 7 PM EDT Anxiety CRP C-REACTIVE PROTEIN Routine 5:17 PM EDT Anxiety JOSEPH BY IFA RFX TITER/PATTERN Routine 07/03/2025 5:17 PM EDT Anxiety TSH Routine 07/03/2025 5:17 PM EDT Anxiety T4, FREE Routine 07/03/2025 5:17 PM EDT Anxiety MAGNESIUM Routine 07/03/2025 5:17 PM EDT Anxiety HEMOGLOBIN A1C Routine 07/03/2025 5:17 PM EDT Anxiety documented in this encounter Results * (ABNORMAL) CMP12+LP+6AC ([id number]) - [facility] (07/03/2025 5:17 PM EDT) Glucose [...] - 07/05/2025 9:09 AM EDT Performed at: [address] [id number] Supervisor Steno Pool: Jc Shaver PhD, Phone: [phone] us Ronald Duncan MD LAB BLOOD ORDERABLES Final Resul t Performing Organization Address [facility] de Phone Number [facility] - [address] [place] [address] * Hgb A1C Hemoglobin Glycosylated (07988) (07/03/2025 5:17 PM EDT) Hemoglobin A1C 4.9 4.8 - 5.6 % Comment: Prediabetes: 5.7 - 6.4 Diabetes: >6.4 Glycemic control for adults with diabetes: <7.0 Blood (Blood, Venous) 07/03/2025 5:17 PM EDT 07/04/2025 1:00 AM EDT Comment:Blood, Venou Narrative [facility] - 07/05/2025 4:07 AM EDT Performed at: [address] [id number] Supervisor Steno Pool: Jc Shaver PhD, Phone: [phone] us Ronald Duncan MD LAB BLOOD ORDERABLES Final Resul t Performing Organization Address [facility] de Phone Number [facility] - [address] [place] [address] * (ABNORMAL) TSH Thyroid Stimulating Hormone?? ([id number]) (07/03/2025 5:17 PM EDT) Pathologist [facility] TSH, High Sensitivity 0.386(L) 0.450 - 4.500 uIU/mL 01 Blood (Blood, Venous) 07/03/2025 5:17 PM EDT 07/04/2025 1:00 AM EDT Comment:Blood, Venou Narrative [facility] - 07/05/2025 6:07 AM EDT Performed at: [address] [id number] Supervisor Steno Pool: Jc Shaver PhD, Phone: [phone] us Ronald Duncan MD LAB BLOOD ORDERABLES Final Resul t Performing Organization Address [facility] Co de Phone Number [facility] - [address] [place] [address] * T4, Free (97930) (07/03/2025 5:17 PM EDT) Pathologist [facility] Free T4 1.44 0.82 - 1.77 ng/dL 01 Blood (Blood, Venous) 07/03/2025 5:17 PM EDT 07/04/2025 1:00 AM EDT Comment:Blood, Venou Narrative [facility] - 07/05/2025 7:07 AM EDT Performed at: [address] [place] [id number] Supervisor Steno Pool: Jc Shaver PhD, Phone: [phone] us Ronald Duncan MD LAB BLOOD ORDERABLES Final Resul t Performing Organization Address [facility] de Phone Number [facility] [place] [address] * TPO Thyroid Peroxidase and Thyroglobulin Antibodies?? (57266,91715) (07/03/2025 5:17 PM EDT) [facility] Thyroid Peroxidase Ab 18 0 - 34 IU/mL 01 Antithyroglobulin Ab <1.0 0.0 - 0.9 IU/mL 01 Comment: Thyroglobulin Antibody measured by Shila Marlyn Methodology It should be noted that the presence of thyroglobulin antibodies may not be pathogenic nor diagnostic, especially at very low levels. The assay boat cleaning supervisor has found that four percent of individuals without evidence of thyroid disease or autoimmunity will have positive TgAb levels up to 4 IU/mL. Blood (Blood, Venous) 07/03/2025 5:17 PM EDT 07/04/2025 1:00 AM EDT Comment:Blood, Venou Narrative [facility] - 07/07/2025 5:09 PM EDT Performed at: [address] [place] [id number] Supervisor Steno Pool: Jc Shaver PhD, Phone: [phone] Ronald Duncan MD LAB BLOOD ORDERABLES Final Resul t [facility] - [address] [place] [address] * CBC Complete blood count with diff ([id number]) (07/03/2025 5:17 PM EDT) Auto WBC 5.8 3.4 - 10.8 x10E3/uL [...] EDT 07/04/2025 1:00 AM EDT Comment:Maddy Molina [facility] - 07/05/2025 4:07 AM EDT Performed at: 01 - [address] [id number] Supervisor Steno Pool: Jc Shaver PhD, Phone: [phone] us Ronald Duncan MD LAB BLOOD ORDERABLES Final Resul t Performing Organization Address [facility] de Phone Number [facility] - [address] [place] [address] * Magnesium Serum (80925) (07/03/2025 5:17 PM EDT) Pathologist [facility] Magnesium 2.1 1.6 - 2.3 mg/dL 01 Blood (Blood, Venous) 07/03/2025 5:17 PM EDT 07/04/2025 1:00 AM EDT Comment:Blood, Venou Narrative [facility] - 07/05/2025 9:09 AM EDT Performed at: [facility] [address] [id number] Supervisor Steno Pool: Jc Shaver PhD, Phone: [phone] us Ronald Duncan MD LAB BLOOD ORDERABLES Final Resul t Performing Organization Address [facility] de Phone Number [facility] - [address] [place] [address] * JOSEPH Screen,IFA, with Reflex to Titer and Pattern?? ([id number]) (07/03/2025 5:17 PM EDT) Pathologist [facility] antinuclear Antibodies, IFA Negative 01 Comment: Negative <1:80 Borderline 1:80 Positive >1:80 ICAP nomenclature: AC-0 For more information about Hep-2 cell patterns use ANApatterns.org, the official website for the International Consensus on Antinuclear Antibody (JOSEPH) Patterns (ICAP). Blood (Blood, Venous) 07/03/2025 5:17 PM EDT 07/04/2025 1:00 AM EDT Comment:Blood, Venou Narrative [facility] - 07/08/2025 10:09 AM EDT Performed at: [address] [id number] Supervisor Steno Pool: Jc Shaver PhD, Phone: [phone] us Ronald Duncan MD LAB BLOOD ORDERABLES Final Resul t Performing Organization Address [facility] de Phone Number [facility] - [address] [place] [address] * Rheumatoid factor (36869) (07/03/2025 5:17 PM EDT) Pathologist [facility] Rheumatoid Factor <10.0 <14.0 IU/mL 01 Blood (Blood, Venous) 07/03/2025 5:17 PM EDT 07/04/2025 1:00 AM EDT Comment:BloodMaddy Narrative [facility] - 07/05/2025 10:09 AM EDT Performed at: [facility] [address] [id number] Supervisor Steno Pool: Jc Shaver PhD, Phone: [phone] us Ronald Duncan MD LAB BLOOD ORDERABLES Final Resul t Performing Organization Address [facility] Co de Phone Number [facility] - [address] [place] [address] * CRP C-reactive protein (66196) (07/03/2025 5:17 PM EDT) Pathologist [facility] CRP 2 0 - 10 mg/L 01 Blood (Blood, Venous) 07/03/2025 5:17 PM EDT 07/04/2025 1:00 AM EDT Comment:BloodMaddy Narrative [facility] - 07/05/2025 10:09 AM EDT Performed at: [facility] [address] [id number] Supervisor Steno Pool: Jc Shaver PhD, Phone: [phone] us Ronald Duncan MD LAB BLOOD ORDERABLES Final Resul t Performing Organization Address [facility] Co de Phone Number [facility] - [address] [place] [address] documented in this encounter Visit Diagnoses Diagnosis Anxiety Anxiety state, unspecified documented in this encounter Care Teams Grocery Sacker Relationship Specialty Start Date End Date Naldo Anna [address] [place] [address] PCP - General Family Medicine 06/24/25 documented as of this encounter
--- OUTSIDE RECORDS SUMMARY | 2025-07-25 15:05 | XMS_ITS | Encounter Summary ---
Author Organization [facility] Address [address] [place], [place] [id number] Phone [email or web address] Care Team Providers Care Mounting Inspector Name Role Phone Anna Hitchcock Primary Care Provider Unavailabl e Encounter Details Date Type Department Care Team (Late st Contact Info) Description 07/08/2025 Results Follow-Up [facility] [address] [facility] [address] [place] [address] Ronald Duncan MD [address] [facility] [address] [place] [address] Social History Tobacco Use Types Packs/Day Years [...] on file documented as of this encounter Plan of Treatment Not on file documented as of this encounter Visit Diagnoses Not on filedocumented in this encounter Care Teams Mounting Inspector Relationship Specialty Start Date End Date Anna Hitchcock [address] [place] [address] PCP - General Family Medicine 06/24/25 documented as of this encounter
--- OUTSIDE RECORDS SUMMARY | 2025-07-25 15:05 | XMS_ITS | Clinical Summary ---
Author Organization [facility] Address [address] [place], [place] [address] Phone [email or web address] Care Team Providers Care Church Warden Name Role Phone Anna Hitchcock Primary Care Provider Unavailabl e Allergies No known active allergies Medications escitalopram (LEXAPRO) 10 MG tabletIndication s:Anxiety Take 1 tablet (10 mg total) by mouth 1 (one) time each day. 90 tablet 06/24/2025 Active Active Problems No known active problems Encounters Date Type Department Care Team Description 07/08/2025 Results Follow-Up [address] [place] [address] Ronald Duncan MD 07/03/2025 5:30 PM EDT Lab [address] [place] [address] Melisa Segura MA Anxiety 06/24/2025 5:15 PM EDT Office Visit [address] [place] [address] Ronald Duncan MD Anxiety (Primary [...] Mass Index - - Plan of Treatment Health Maintenance Due Date Last Done Comments Cervical Cancer Screening Combo 2000 Dental Cleaning/Exam 2000 HIV Screening 2000 HPV / Cotest 2000 Hepatitis C Screening 2000 Pap Testing 2000 Hepatitis B Immunization (3 of 3 - 3-dose series) 05/29/2001 04/03/2001, 2000 HPV Immunization (1 - 3-dose series) 2015 Annual Preventive Exam 2018 Hep B Infection [...] on patient's age to complete this topic Procedures Procedure Name Priority Date/Time Associated Diagnosis Comments CMP12+LP+6AC - [facility] Routine 5:17 PM EDT Anxiety HEMOGLOBIN A1C Routine 07/03/2025 5:17 PM EDT Anxiety TSH Routine 07/03/2025 5:17 PM EDT Anxiety T4, FREE Routine 07/03/2025 5:17 PM EDT Anxiety TPO THYROID PEROXIDASE AND THYROGLOBULIN ANTIBODIES Routine 07/03/2025 5:17 PM EDT Anxiety CBC WITH DIFFERENTIAL/PLATELET Routine 07/03/2025 5:17 PM EDT Anxiety MAGNESIUM Routine 07/03/2025 5:17 PM EDT Anxiety JOSEPH BY IFA RFX TITER/PATTERN Routine 07/03/2025 5:17 PM EDT Anxiety RHEUMATOID FACTOR Routine 07/03/2025 5:1 7 PM EDT Anxiety CRP C-REACTIVE PROTEIN Routine 5:17 PM EDT Anxiety from Last 3 Months Results * (ABNORMAL) CMP12+LP+6AC ([id number]) - [facility] (07/03/2025 5:17 PM EDT) Glucose [...] EDT 07/04/2025 1:00 AM EDT Comment:Maddy Molina - 07/05/2025 9:09 AM EDT Performed at: [address] [id number] University Counselor: cJ Shaver PhD, Phone: [phone] us Ronald Duncan MD LAB BLOOD ORDERABLES Final Resul t Performing Organization Address [facility] Co de Phone Number [facility] [employer] [address] [place] [address] * TPO Thyroid Peroxidase and Thyroglobulin Antibodies?? ([id number],28422) (07/03/2025 5:17 PM EDT) Pathologist [facility] Thyroid Peroxidase Ab 18 0 - 34 IU/mL 01 Antithyroglobulin Ab <1.0 0.0 - 0.9 IU/mL 01 Comment: Thyroglobulin Antibody measured by Shila Hurley Methodology It should be noted that the presence of thyroglobulin antibodies may not be pathogenic nor diagnostic, especially at very low levels. The assay gyroscope repairer has found that four percent of individuals without evidence of thyroid disease or autoimmunity will have positive TgAb levels up to 4 IU/mL. Blood (Blood, Venous) 07/03/2025 5:17 PM EDT 07/04/2025 1:00 AM EDT Comment:Blood, Venou Narrative [facility] - 07/07/2025 5:09 PM EDT Performed at: [facility] [address] [place] [id number] University Counselor: Jc Shaver PhD, Phone: [phone] us Ronald Duncan MD LAB BLOOD ORDERABLES Final Resul t Performing Organization Address [facility] Co de Phone Number [facility] - [address] [place] [address] * CBC Complete blood count with diff (57882) (07/03/2025 5:17 PM EDT) Pathologist [facility] Auto WBC 5.8 3.4 - 10.8 x10E3/uL [...] - 07/05/2025 4:07 AM EDT Performed at: [address] [place] [id number] University Counselor: Jc Shaver PhD, Phone: [phone] us Ronald Duncan MD LAB BLOOD ORDERABLES Final Resul t Performing Organization Address City/State/[facility] Co de Phone Number [facility] - [address] [place] [address] * Rheumatoid factor (52599) (07/03/2025 5:17 PM EDT) Rheumatoid Factor <10.0 <14.0 IU/mL 01 Blood (Blood, Venous) 07/03/2025 5:17 PM EDT 07/04/2025 1:00 AM EDT Comment:Blood, Venou Narrative [facility] - 07/05/2025 10:09 AM EDT Performed at: [address] [place] [id number] University Counselor: Jc Shaver PhD, Phone: [phone] us Ronald Duncan MD LAB BLOOD ORDERABLES Final Resul t Performing Organization Address [facility] Co de Phone Number [facility] - [address] [place] [address] * CRP C-reactive protein (97340) (07/03/2025 5:17 PM EDT) CRP 2 0 - 10 mg/L 01 Blood (Blood, Venous) 07/03/2025 5:17 PM EDT 07/04/2025 1:00 AM EDT Comment:Blood, Venou Narrative [facility] - 07/05/2025 10:09 AM EDT Performed at: [address] [id number] University Counselor: Jc Shaver PhD, Phone: [phone] us Ronald Duncan MD LAB BLOOD ORDERABLES Final Resul t Performing Organization Address [facility] de Phone Number [facility] - [address] [place] [address] * JOSEPH Screen,IFA, with Reflex to Titer and Pattern?? (25927) (07/03/2025 5:17 PM EDT) antinuclear Antibodies, IFA Negative Comment: Negative <1:80 Borderline 1:80 Positive >1:80 ICAP nomenclature: AC-0 For more information about Hep-2 cell patterns use ANApatterns.org, the official website for the International Consensus on Antinuclear Antibody (JOSEPH) Patterns (ICAP). Blood (Blood, Venous) 07/03/2025 5:17 PM EDT 07/04/2025 1:00 AM EDT Comment:Blood, Venou Narrative [facility] - 07/08/2025 10:09 AM EDT Performed at: - [facility] [address] [id number] University Counselor: Jc Shaver PhD, Phone: [phone] us Ronald Duncan MD LAB BLOOD ORDERABLES Final Resul t Performing Organization Address [facility] de Phone Number [facility] - [address] [place] [address] * (ABNORMAL) TSH Thyroid Stimulating Hormone?? (95733) (07/03/2025 5:17 PM EDT) TSH, High Sensitivity 0.386(L) 0.450 - 4.500 uIU/mL 01 Blood (Blood, Venous) 07/03/2025 5:17 PM EDT 07/04/2025 1:00 AM EDT Comment:Blood, Venou Narrative [facility] - 07/05/2025 6:07 AM EDT Performed at: [facility] [address] [id number] University Counselor: Jc Shaver PhD, Phone: [phone] us Ronald Duncan MD LAB BLOOD ORDERABLES Final Resul t Performing Organization Address [facility] de Phone Number [place] [address] [place] [address] * T4, Free (00309) (07/03/2025 5:17 PM EDT) Pathologist [facility] Free T4 1.44 0.82 - 1.77 ng/dL 01 Blood (Blood, Venous) 07/03/2025 5:17 PM EDT 07/04/2025 1:00 AM EDT Comment:Blood, Venou Narrative [facility] - 07/05/2025 7:07 AM EDT Performed at: [facility] [address] [id number] University Counselor: Jc Shaver PhD, Phone: [phone] us Ronald Duncan MD LAB BLOOD ORDERABLES Final Resul t Performing Organization Address [facility] Co de Phone Number [facility] [phone] [place] [address] * Magnesium Serum (18346) (07/03/2025 5:17 PM EDT) Pathologist [facility] Magnesium 2.1 1.6 - 2.3 mg/dL 01 Blood (Blood, Venous) 07/03/2025 5:17 PM EDT 07/04/2025 1:00 AM EDT Comment:Blood, Venou Narrative [facility] - 07/05/2025 9:09 AM EDT Performed at: [facility] [address] [id number] University Counselor: Jc Shaver PhD, Phone: [phone] Ronald Duncan MD LAB BLOOD ORDERABLES Final Resul t Performing Organization Address [facility] de Phone Number [facility] - [address] [place] [address] * Hgb A1C Hemoglobin Glycosylated (33761) (07/03/2025 5:17 PM EDT) [facility] Hemoglobin A1C 4.9 4.8 - 5.6 % Comment: Prediabetes: 5.7 - 6.4 Diabetes: >6.4 Glycemic control for adults with diabetes: <7.0 Blood (Blood, Venous) 07/03/2025 5:17 PM EDT 07/04/2025 1:00 AM EDT Comment:Blood, Venou Narrative [facility] - 07/05/2025 4:07 AM EDT Performed at: [facility] [address] [id number] University Counselor: Jc Shaver PhD, Phone: [phone] Ronald Duncan MD LAB BLOOD ORDERABLES Final Resul t Performing Organization Address [facility] de Phone Number [facility] - [address] [place] [address] from Last 3 Months Insurance ANTHDELMY NO COPAY NB Care Teams Church Warden Relationship Specialty Start Date End Date Anna Hitchcock [place] [address] PCP - General Family Medicine 06/24/25
--- NOTE | 2025-07-25 15:30 | US_ITS ---
FINAL REPORT TECHNIQUE: Limited sonographic images of the thyroid were obtained. CLINICAL HISTORY: evaluate and treat COMPARISON: 09/30/2022 FINDINGS: The right lobe of the thyroid measures 4.8 x 1.6 x 1.9 cm. There is an isoechoic nodule measuring 1.1 cm consistent with TR 3. The left lobe of the thyroid measures 4.6 x 1.8 x 1.9 cm. There is a dominant nodule measuring 2.7 x 1.6 cm, was 2.8 x 1.5 cm. Finding is consistent with TR 3. Smaller cystic nodules are seen bilaterally. The isthmus measures 2 mm. IMPRESSION: Dominant TR 3 nodule in the left lobe. Nodule is greater than 2.5 cm and has increased in AP dimension. If not already obtained, biopsy is recommended as per TI-RADS criteria. Reviewed, Interpreted and Dictated by Jr Byrne MD Transcribed by Misty Aleman Authenticated and [facility]
== END 2025-07-25 23:59 | disposition home or self-care (01) ==
LOC: RAD 15:04
PROVIDERS: PCP Physician Assistant; Visit Provider Nurse Practitioner
DX: E04.1 Nontoxic single thyroid nodule (principal); R22.1 Localized swelling, mass and lump, neck
CPT/HCPCS: 76536

== ENCOUNTER 2025-08-11 07:46 | Outpatient (CLI) | payer BC, SELFPAY ==
--- NOTE | 2025-08-11 08:00 | US_ITS ---
FINAL REPORT CLINICAL HISTORY: ANTONIO MARTINES -- LT THYROID NODULE FINDINGS: Ultrasound guided thyroid biopsy. HISTORY: Thyroid mass, left lobe. Attending radiologist: Dr. Murphy Physician oncology physician assistant: Antonio Rodgers PA-C PROCEDURE: After informed consent was obtained and a time-out was performed, the patient was prepped and draped in usual sterile fashion over the left neck. Utilizing local anesthesia and sterile technique with a 25-gauge needle, access to lesion was obtained. Three passes were made under direct ultrasound guidance. The patient received no conscious sedation. The patient tolerated procedure well and left the department in good condition. IMPRESSION: Status post ultrasound guided biopsy of thyroid without immediate complication. Reviewed, Interpreted and Dictated by Hammad Murphy MD Transcribed by CONRAD Faria Authenticated and [facility]
== END 2025-08-11 23:59 | disposition home or self-care (01) ==
PROVIDERS: PCP Physician Assistant; Visit Provider Nurse Practitioner
DX: E04.1 Nontoxic single thyroid nodule (principal)
CPT/HCPCS: 10005